=== PATIENT | female | born 1950 | race Caucasian/White ===

== ENCOUNTER → 2018-07-08 | Outpatient (CLI) | payer OTHER | END | disposition home or self-care (01) | LOC: RAH 13:06 | PROVIDERS: ATTEND Internal Medicine | DX: N23 Unspecified renal colic (principal) | CPT/HCPCS: 74176 ==

== ENCOUNTER → 2025-02-23 | Outpatient (CLI) | payer MEDICARE ==
--- NOTE | 2025-02-23 13:47 | HMCIMG ---
EXAM: CT Abdomen and Pelvis Without IV contrast CLINICAL HISTORY: Diverticulitis of large intestine without perforation or abscess without bl TECHNIQUE: Axial computed tomography images of the abdomen and pelvis without intravenous contrast. CONTRAST: No IV contrast. COMPARISON: None provided. FINDINGS: LUNG BASES: Small area of nodularity in the lateral segment right middle lobe partially included. No pleural effusions are seen. LIVER: Unremarkable. GALLBLADDER AND BILE DUCTS: The gallbladder appears within normal limits. No radioopaque gallstones are seen. No biliary ductal dilatation is evident. PANCREAS: Unremarkable. SPLEEN: Unremarkable. ADRENAL GLANDS: Unremarkable. KIDNEYS, URETERS, AND BLADDER: The kidneys appear within normal limits. There is no hydronephrosis or hydroureter. No urinary calculi are seen. STOMACH AND BOWEL: Unremarkable appearance of the stomach and bowel. No evidence of bowel obstruction. No evidence suggesting enteritis or colitis. Moderate retained stool present throughout the majority of the colon. No visible diverticulosis. APPENDIX: No evidence of acute appendicitis on CT examination. PERITONEUM: No free fluid. No free air. LYMPH NODES: No lymphadenopathy is evident. REPRODUCTIVE: The uterus is absent VASCULATURE: No evidence of abdominal aortic aneurysm. BONES: No aggressive appearing osseous lesion. No acute osseous pathology evident. Grade 1 anterior listhesis L4 over L5 likely secondary to marked facet arthrosis. Spinal canal narrowing L4-L5. Grade 1 posterior listhesis L2 over L3 and L3 over L4. IMPRESSION: 1. No acute intraabdominal or pelvic pathology. 2. Small area of nodularity in the lateral segment of right middle lobe, partially included. 3. Grade 1 anterior listhesis L4 over L5, likely secondary to marked facet arthrosis. 4. Spinal canal narrowing at L4-L5. 5. Grade 1 posterior listhesis L2 over L3 and L3 over L4. 6. Moderate retained stool throughout the majority of the colon. 7. Status post hysterectomy. /[place]
== END | disposition home or self-care (01) ==
LOC: RAH 12:12
PROVIDERS: ATTEND Internal Medicine
DX: K57.32 Diverticulitis of large intestine without perforation or abscess without bleeding (principal); E11.22 Type 2 diabetes mellitus with diabetic chronic kidney disease; N18.9 Chronic kidney disease, unspecified; E11.40 Type 2 diabetes mellitus with diabetic neuropathy, unspecified; E03.9 Hypothyroidism, unspecified; H61.20 Impacted cerumen, unspecified ear; H60.509 Unspecified acute noninfective otitis externa, unspecified ear; M43.16 Spondylolisthesis, lumbar region; M48.061 Spinal stenosis, lumbar region without neurogenic claudication; Z90.710 Acquired absence of both cervix and uterus
CPT/HCPCS: 74176